=== PATIENT | male | born 1975 | race Caucasian/White ===

== ENCOUNTER 2019-01-30 21:09 | Emergency (ER) | payer BC ==
--- NOTE | 2019-01-30 21:22 | Emergency Department Record ---
History of Present Illness - General Chief Complaint: Chest Pain Stated Complaint: CHEST PAIN Time Seen by Provider: 01/30/19 21:12 Source: Patient Mode of Arrival: Ambulatory Limitations: No limitations - History of Present Illness Initial Comments: 43 yo male presents with a feeling of left sided chest discomfort. He states it feels like something is "flicking" his heart. The onset was 30 minutes ago while eating diner. No cough, no shortness of breath, no sweating. No radiation of the pain. He does not have any history of CAD. He is a smoker. No family history of premature CAD. His grandfathers had CAD but were in there 70's. No DM, HTN, or elevated cholesterol. He took Excedrin [employer] (equivalent of 500mg of aspirin so it will not be given in the ED). No chronic diseases. MD Complaint: Chest pain -: Minutes(s) Onset: Other (while eating) Pain Location: Left chest Pain Radiation: None Severity: Moderate Quality: Aching (like a flick) Consistency: Constant Improves With: Nothing Worsens With: Nothing Context: Other Anginal Symptoms: Other (None. Not related to exertion) Treatments Prior to Arrival: Aspirin - Related Data Allergies Allergy/AdvReac Type Severity Reaction Status Date / Time No Known Allergies Allergy Unknown PT UNSURE Verified 01/30/19 21:22 OF REACTION Review of Systems Constitutional: Denies: Chills, Fever, Malaise, Weakness Eyes: Denies: Eye discharge, Eye pain, Photophobia, Vision change ENT: Denies: Congestion, Throat pain Respiratory: Denies: Cough, Dyspnea, Hemoptysis, Wheezes Cardiovascular: Reports: Chest pain. Denies: Edema, Palpitations, Syncope Endocrine: Denies: Fatigue, Polydipsia, Polyuria Gastrointestinal: Denies: Abdominal pain, Diarrhea, Nausea, Vomiting Genitourinary: Denies: Dysuria, Frequency, Hematuria Musculoskeletal: Denies: Arthralgia, Back pain, Myalgia Skin: Denies: Bruising, Change in color, Rash Neurological: Denies: Headache Psychiatric: Denies: Anxiety Hematological/Lymphatic: Denies: Anemia, Blood Clots, Easy bleeding, Easy bruising, Swollen glands Physical Exam - General General Appearance: Alert, Oriented x3, Cooperative, No acute distress Limitations: No limitations - Head Head exam: Atraumatic, Normal inspection - Eye Eye exam: Normal appearance, PERRL. negative: Conjunctival injection, Scleral icterus - ENT ENT exam: Normal exam, Mucous membranes moist Ear exam: Normal external inspection Nasal Exam: Normal inspection Mouth exam: Normal external inspection - Neck Neck exam: Normal inspection - Respiratory Respiratory exam: Normal lung sounds bilaterally. negative: Accessory muscle use, Chest wall tenderness, Prolonged expiratory, Respiratory distress, Rhonchi, Stridor, Wheezes - Cardiovascular Cardiovascular Exam: Regular rate, Normal rhythm, Normal heart sounds. negative: Diastolic murmur, Systolic murmur, Tachycardia Peripheral Pulses: 2+: Radial (R), Radial (L) - GI/Abdominal GI/Abdominal exam: Soft. negative: Tenderness - Rectal Rectal exam: Deferred - exam: Deferred - Extremities Extremities exam: Normal inspection. negative: Pedal edema, Tenderness - Back Back exam: Denies: CVA tenderness (R), CVA tenderness (L) - Neurological Neurological exam: Alert, Oriented X3 - Psychiatric Psychiatric exam: Normal affect, Normal mood. negative: Agitated, Anxious - Skin Skin exam: Dry, Intact, Normal color, Warm Course - Reevaluation(s) Reevaluation #1: Aspirin taken prior to arrival 01/30/19 21:20 EKG #1: 21:16 Rate: 77 Rhythm: Sinus Terrell: Normal Intervals: Qtc [address] segments: No acute abnormalities No old 01/30/19 21:22 01/30/19 23:17 The patient states he must leave now. I explained that it can take time and there is a delay of when labs are abnormal with injury to the heart. I explained that leaving early puts him at risk for missing a diagnosis. He understood my explanation and is still not willing to stay. I asked if we could draw his lab now and call if abnormal. He did not consent to this stating he must leave now. I explained that heart attack was not ruled out and he would need to sign out against medical advise. He understands this and agrees to sign out knowing he can return anytime. He was given follow up information for a new PCP in the community. He was informed that he can return anytime to the ED. 01/30/19 Medical Decision Making - Lab Data Result diagrams: 01/30/19 21:20 01/30/19 21:20 Disposition Disposition: Discharge Clinical Impression: Hypokalemia Chest pain Qualifiers: Chest pain type: unspecified Qualified Code(s): R07.9 - Chest pain, unspecified Disposition: Against Medical Advice Condition: (2) Stable Instructions: Chest Pain (ED), Hypokalemia (ED), Against Medical Advice (ED) Additional Instructions: Review this ER visit and the tests performed with your new family doctor Call your new doctor for the next available follow up appointment Return to the ER for a recheck immediately if worse, any new concerns or questions You are signing out AMA today but return anytime Referrals: STAN DEWITT [MEDICAL DOCTOR] - Forms: Patient Portal Access Time of Disposition: 23:17 Quality - Quality Measures Quality Measures: N/A - Blood Pressure Screening Does Patient Have Any of the Following: No Blood Pressure Classification: Hypertensive Reading Systolic Measurement: 183 Diastolic Measurement: 109 Screening for High Blood Pressure: < Pre-Hypertensive BP, F/U Documented > [[id number]] Pre-Hypertensive Follow-up Interventions: Referral to alternative/primary care provider.
[2019-01-30 21:28] LABS: ABSOLUTE NEUTROPHIL COUNT 5.98; BASO % 0.3 % (0-6); EOS % 2.6 % (0-6); GRAN % 64.7 % (47-80); HEMATOCRIT 36.1 % (42.0-52.0); HEMOGLOBIN 12.7 gm/dl (14.0-18.0); LYMPH % 24.5 % (16-45); MEAN CELL VOLUME 98.6 fl (81-97); MEAN CORPUSCULAR HGB CONC 35.2 g/dl (32-36); MEAN PLATELET VOLUME 9.5 fl (7.4-10.4); MONO % 7.9 % (0-9); PLATELET COUNT 122 K/uL (130-400); RED BLOOD COUNT 3.66 M/uL (4.40-5.70); RED CELL DISTRIBUTION WIDTH 13.3 % (11.5-14.5); WHITE BLOOD COUNT W/O DIFF 9.3 K/uL (4.2-12.2)
[2019-01-30 21:29] LABS: MEAN CORPUSCULAR HEMOGLOBIN 34.6 pg (27-33)
[2019-01-30 21:38] LABS: BLOOD UREA NITROGEN 25 mg/dL (6-20); CREATININE 0.7 mg/dL (0.7-1.2); EST GLOMERULAR FILTRATION RATE > 60 mL/min
[2019-01-30 21:41] LABS: GLUCOSE,RANDOM 93 mg/dL (74-109); PARTIAL THROMBOPLASTIN TIME 29.2 SECONDS (24.5-39.1)
--- NOTE | 2019-01-30 21:47 | RADIOLOGY REPORT ---
EXAMINATION: Two View Chest Radiographs EXAM DATE: 01/30/2019 9:42 PM TECHNIQUE: Frontal and lateral views INDICATION: chest pain COMPARISON: None ENCOUNTER: Not applicable FINDINGS: The heart, mediastinum, and pulmonary vasculature are normal. No lung consolidation or pleural effu sions are present. IMPRESSION: Normal chest. Dictated by: Oswaldo Celeste MD on 01/30/2019 9:44 PM. .
[2019-01-30] MEDS ORDERED: POTASSIUM CHLORIDE 20 MEQ TABLET PO ONE (21:55)
[2019-01-30] MEDS ORDERED: SOD CHLOR 0.9% WITH KCL 40MEQ 40 MEQ/1,000 ML IV.SOLN IV ONE (21:56)
== END 2019-01-30 23:25 | disposition left against medical advice (07) ==
LOC: ER 21:09
DX: E87.6 Hypokalemia (principal); R07.89 Other chest pain; F17.210 Nicotine dependence, cigarettes, uncomplicated
CPT/HCPCS: 71046; 80048; 84484; 85025; 85610; 85730; 93005; 93010; 96365; 99284